=== PATIENT | male | born 1995 | race Hispanic/Latino ===

== ENCOUNTER 2018-05-04 16:15 | Emergency (ER) | payer MEDICARE ==
[2018-05-04 17:07] LABS: BASOPHILS % (AUTO) 0.4 % (0.0-5.0); EOSINOPHILS % (AUTO) 0.1 % (0.0-8.0); HEMATOCRIT 33.8 % (42-54); LYMPHOCYTES % (AUTO) 0.8 % (21.0-51.0); MEAN CORPUSCULAR HEMOGLOBIN 32.1 pg (27.0-33.0); MEAN CORPUSCULAR HGB CONC 32.5 g/dL (32.0-36.0); MEAN CORPUSCULAR VOLUME 98.6 fL (79-99); MONOCYTES % (AUTO) 0.1 % (3.0-13.0); NEUTROPHILS % (AUTO) 98.6 % (40.0-77.0); PLATELET COUNT (AUTO) 107 K/uL (130-400); RED BLOOD CELL COUNT(AUTO) 3.43 MIL/uL (4.50-6.20); RED CELL DISTRIBUTION WIDTH 19.5 % (11.0-15.5); WHITE BLOOD COUNT (AUTO) 5.3 K/uL (4.8-10.8)
[2018-05-04 17:29] LABS: CREATININE 10.8 mg/dL (0.5-1.5); POTASSIUM 6.6 mmol/L (3.5-5.1)
[2018-05-04 17:38] LABS: ALBUMIN 2.9 g/dL (3.5-5.0); BILIRUBIN,DIRECT 1.7 mg/dL (0.0-0.3); BILIRUBIN,TOTAL 1.9 mg/dL (0.2-1.0)
[2018-05-04 18:12] LABS: BAND NEUTROPHILS % (MANUAL) 18 % (0-2); MAN.DIFF COMMENT-IMPRESSION MANUAL DIFFERENTIAL; METAMYELOCYTES % 3 % (0-0); MONOCYTES % (MANUAL) 4 % (2-9); SEGMENTED NEUTROPHILS % 75 % (40-70)
[2018-05-04 18:13] LABS: PLATELET MORPHOLOGY COMMENT SLIGHTLY DECREASED
[2018-05-05 00:22] LABS: ALBUMIN 2.4 g/dL (3.5-5.0); BILIRUBIN,TOTAL 1.5 mg/dL (0.2-1.0); CREATININE 7.7 mg/dL (0.5-1.5); TOTAL PROTEIN, SERUM 5.1 g/dL (6.0-8.3)
== END 2018-05-05 03:16 | disposition short-term general hospital (02) ==
LOC: EDH 16:15
DX: N17.9 Acute kidney failure, unspecified (principal); E87.5 Hyperkalemia; Z99.2 Dependence on renal dialysis; Z94.0 Kidney transplant status
CPT/HCPCS: 36415; 80048; 80053; 80076; 85025; 90935; 93005; G0257

== ENCOUNTER 2018-08-17 18:57 | Emergency (ER) | payer MEDICARE ==
[2018-08-17 20:11] LABS: MEAN CORPUSCULAR HEMOGLOBIN 31.5 pg (27.0-33.0); MEAN CORPUSCULAR HGB CONC 33.3 g/dL (32.0-36.0); MEAN CORPUSCULAR VOLUME 94.5 fL (79-99); PLATELET COUNT (AUTO) 454 K/uL (130-400); RED BLOOD CELL COUNT(AUTO) 1.91 MIL/uL (4.50-6.20); RED CELL DISTRIBUTION WIDTH 19.2 % (11.0-15.5); WHITE BLOOD COUNT (AUTO) 10.1 K/uL (4.8-10.8)
[2018-08-17 20:16] LABS: HEMATOCRIT 18.1 % (42-54)
[2018-08-17 20:41] LABS: EOSINOPHILS % (MANUAL) 3 % (1-6); LYMPHOCYTES % (MANUAL) 6 % (22-44); MAN.DIFF COMMENT-IMPRESSION MANUAL DIFFERENTIAL; MONOCYTES % (MANUAL) 9 % (2-9); SEGMENTED NEUTROPHILS % 82 % (40-70)
[2018-08-17 20:43] LABS: PLATELET MORPHOLOGY COMMENT INCREASED
== END 2018-08-17 21:07 | disposition home or self-care (01) ==
LOC: EDH 18:57
DX: D64.9 Anemia, unspecified (principal); N18.6 End stage renal disease; Z99.2 Dependence on renal dialysis; Z94.0 Kidney transplant status; Z98.890 Other specified postprocedural states
CPT/HCPCS: 36415; 85025

== ENCOUNTER 2021-01-08 06:14 | Inpatient (IN) | payer MEDICARE ==
[~2021-01-08] VITALS: Ht 157.5 cm; Wt 60.9 kg
[2021-01-08] VITALS (15 sets, daily range): BP systolic 98–169; BP diastolic 74–99
[~2021-01-08 06:14] MED LIST: METO25TA6 PO; SEVE800T7 PO
[2021-01-08 07:24] LABS: BASOPHILS % (AUTO) 0.6 % (0.0-5.0); EOSINOPHILS % (AUTO) 0.4 % (0.0-8.0); HEMATOCRIT 32.8 % (42-54); LYMPHOCYTES % (AUTO) 20.9 % (21.0-51.0); MEAN CORPUSCULAR HEMOGLOBIN 30.2 pg (27.0-33.0); MEAN CORPUSCULAR HGB CONC 31.7 g/dL (32.0-36.0); MEAN CORPUSCULAR VOLUME 95.3 fL (79-99); MONOCYTES % (AUTO) 4.1 % (3.0-13.0); NEUTROPHILS % (AUTO) 73.6 % (40.0-77.0); PLATELET COUNT (AUTO) 152 K/uL (130-400); RED BLOOD CELL COUNT(AUTO) 3.44 MIL/uL (4.50-6.20); RED CELL DISTRIBUTION WIDTH 14.8 % (11.0-15.5); WHITE BLOOD COUNT (AUTO) 5.1 K/uL (4.8-10.8)
[2021-01-08 07:35] LABS: AMMONIA 7 umol/L (11-32)
[2021-01-08 07:49] LABS: ALANINE AMINOTRANSFERASE 13 U/L (12-78); ALBUMIN 3.7 g/dL (3.5-5.0); ASPARTATE AMINOTRANSFERASE 25 U/L (10-37); BILIRUBIN,TOTAL 0.6 mg/dL (0.2-1.0); CARBON DIOXIDE 25 mmol/L (21-32); CHLORIDE 101 mmol/L (101-111); CREATINE KINASE, TOTAL 76 U/L (21-232); GLOMERULAR FILTR. RATE CALC 9 mL/min (>60); GLUCOSE,RANDOM 118 mg/dL (70-105); LIPASE 165 U/L (114-286); SODIUM SERUM 142 mmol/L (136-145); TOTAL PROTEIN, SERUM 7.6 g/dL (6.0-8.3); UREA NITROGEN, BLOOD 72 mg/dL (7-18)
[2021-01-08 07:59] LABS: MAGNESIUM 2.3 mg/dL (1.80-2.40); PHOSPHORUS 10.6 mg/dL (2.5-4.9)
[2021-01-08 08:10] LABS: CREATININE 8.1 mg/dL (0.5-1.5)
[2021-01-08 08:16] LABS: ALCOHOL, BLOOD < 3 mg/dL (0-10); POTASSIUM 6.8 mmol/L (3.5-5.1)
[2021-01-08] MEDS ORDERED: SODIUM BICARB 50MEQ 50ML VIAL 50 ML ONE (08:26)
[2021-01-08] MEDS ORDERED: INSULIN HUMULIN R 100 UNIT/ML 3ML IV ONE (08:30)
[2021-01-08] MEDS ORDERED: SODIUM BICARB 8.4% 50ML SYRINGE IVP ONE (08:30)
[2021-01-08] MEDS ORDERED: DEXTROSE 50%-WATER 25 GM/50 ML VIAL IV ONE (08:30)
[2021-01-08] MEDS ORDERED: ALBUTEROL 0.083% 2.5 MG/3 ML INH IH ONE (08:38)
[2021-01-08] MEDS ORDERED: 0.9%NACL 50ML 50 ML IV ONE (08:50)
[2021-01-08] MEDS ORDERED: CALCIUM GLUC 1GM/10ML VIAL ONE (08:50)
[2021-01-08] MEDS: CALCIUM GLUC 1GM 1 GM in 0.9%NACL 100ML 100 ML IV SCH (09:16)
[2021-01-08] MEDS: DEXTROSE 50%-WATER 50 ML DISP.SYRIN IV SCH (09:30)
[2021-01-08] MEDS ORDERED: ALBUTEROL 0.083% 2.5 MG/3 ML INH IH SCH (12:00)
[2021-01-08] MEDS ORDERED: HEPARIN 5,000 UNIT VIAL SQ PRN (15:00)
[2021-01-08] MEDS ORDERED: 0.9%NACL 1000ML 1,000 ML IV PRN (15:00)
[2021-01-08] MEDS ORDERED: METO-408 PO ×2 (18:10→18:14)
[2021-01-08] MEDS ORDERED: AMLO2.5T4 PO (18:10)
[2021-01-08] MEDS ORDERED: BENZ200C53 PO (18:10)
[2021-01-08] MEDS ORDERED: ONDA4TAB10 PO (18:10)
[2021-01-08] MEDS ORDERED: ONDANSETRON ODT 4MG TAB PO PRN (18:30)
[2021-01-08] MEDS ORDERED: BENZONATATE 100 MG CAPSULE PO PRN (18:30)
[2021-01-08] MEDS ORDERED: METOPROLOL SUCCINATE 50 MG TAB.SR.24H PO ONE (18:46)
[2021-01-08] MEDS: AMLODIPINE 2.5 MG TAB PO SCH (18:49)
[2021-01-08] MEDS ORDERED: METOPROLOL TARTRATE 25 MG TAB PO SCH (21:00)
[2021-01-09] VITALS (21 sets, daily range): BP systolic 132–190; BP diastolic 81–147
[2021-01-09 05:18] LABS: BASOPHILS % (AUTO) 1.2 % (0.0-5.0); EOSINOPHILS % (AUTO) 1.9 % (0.0-8.0); HEMATOCRIT 29.7 % (42-54); LYMPHOCYTES % (AUTO) 15.5 % (21.0-51.0); MEAN CORPUSCULAR HEMOGLOBIN 30.6 pg (27.0-33.0); MEAN CORPUSCULAR HGB CONC 31.3 g/dL (32.0-36.0); MEAN CORPUSCULAR VOLUME 97.7 fL (79-99); MONOCYTES % (AUTO) 9.5 % (3.0-13.0); NEUTROPHILS % (AUTO) 71.5 % (40.0-77.0); PLATELET COUNT (AUTO) 114 K/uL (130-400); RED BLOOD CELL COUNT(AUTO) 3.04 MIL/uL (4.50-6.20); RED CELL DISTRIBUTION WIDTH 14.7 % (11.0-15.5); WHITE BLOOD COUNT (AUTO) 5.2 K/uL (4.8-10.8)
[2021-01-09 05:42] LABS: HEMOGLOBIN A1C 4.8 % (4.0-6.0)
[2021-01-09 05:55] LABS: MAGNESIUM 1.8 mg/dL (1.80-2.40); POTASSIUM 5.6 mmol/L (3.5-5.1)
[2021-01-09 06:01] LABS: CREATININE 10.5 mg/dL (0.5-1.5)
[2021-01-09] MEDS: CALCIUM GLUC 1GM 1 GM in 0.9%NACL 100ML 100 ML IV SCH (08:30)
[2021-01-09] MEDS: DEXTROSE 50%-WATER 50 ML DISP.SYRIN IV SCH (08:30)
[2021-01-09] MEDS ORDERED: AMLODIPINE 2.5 MG TAB PO SCH (09:00)
[2021-01-09] MEDS: METOPROLOL SUCCINATE 50 MG TAB.SR.24H PO SCH (09:07)
[2021-01-09] MEDS: SEVELAMER HCL 800 MG TABLET PO SCH ×3 (09:07→17:00)
[2021-01-09] MEDS: HEPARIN 5,000 UNIT VIAL SQ SCH ×2 (09:09→19:12)
[2021-01-09] MEDS: AMLODIPINE 2.5 MG TAB PO SCH (09:22)
[2021-01-09] MEDS ORDERED: CLONIDINE HCL 0.2 MG TABLET PO ONE (19:23)
[2021-01-09] MEDS ORDERED: CLONIDINE HCL 0.1 MG TABLET PO PRN (19:30)
[2021-01-09] MEDS ORDERED: CLONIDINE HCL 0.2 MG TABLET PO STA (19:43)
[2021-01-10 04:00] VITALS: BP 142/96
[2021-01-10 05:12] LABS: HEMATOCRIT 32.9 % (42-54); MEAN CORPUSCULAR HEMOGLOBIN 29.9 pg (27.0-33.0); MEAN CORPUSCULAR HGB CONC 30.4 g/dL (32.0-36.0); MEAN CORPUSCULAR VOLUME 98.5 fL (79-99); PLATELET COUNT (AUTO) 116 K/uL (130-400); RED BLOOD CELL COUNT(AUTO) 3.34 MIL/uL (4.50-6.20); RED CELL DISTRIBUTION WIDTH 14.5 % (11.0-15.5); WHITE BLOOD COUNT (AUTO) 4.3 K/uL (4.8-10.8)
[2021-01-10 05:36] LABS: POTASSIUM 5.7 mmol/L (3.5-5.1)
[2021-01-10 05:40] LABS: CREATININE 8.8 mg/dL (0.5-1.5)
[2021-01-10 08:00] VITALS: BP 143/100
[2021-01-10] MEDS: DEXTROSE 50%-WATER 50 ML DISP.SYRIN IV SCH (08:30)
[2021-01-10] MEDS: CALCIUM GLUC 1GM 1 GM in 0.9%NACL 100ML 100 ML IV SCH (08:30)
[2021-01-10] MEDS: AMLODIPINE 2.5 MG TAB PO SCH (09:01)
[2021-01-10] MEDS: METOPROLOL SUCCINATE 50 MG TAB.SR.24H PO SCH (09:02)
[2021-01-10] MEDS: SEVELAMER HCL 800 MG TABLET PO SCH ×2 (09:02→11:45)
[2021-01-10] MEDS: HEPARIN 5,000 UNIT VIAL SQ SCH (09:04)
[2021-01-10 11:58] VITALS: BP 146/103
[2021-01-10 12:08] LABS: HEPATITIS Bs ANTIGEN SCREEN P Negative (Negative)
== END 2021-01-10 13:30 | disposition left against medical advice (07) | DRG 70 ==
LOC: EDH 06:14 → EDHIP 08:30 → 3DH 01-09 01:14
PROVIDERS: ADMIT Internal Medicine Infectious Disease; ATTEND Internal Medicine Infectious Disease
PROC: 5A1D70Z Performance of Urinary Filtration, Intermittent, Less than 6 Hours Per Day (ICD-10-PCS; principal; 2021-01-08)
PROC: 5A1D70Z Performance of Urinary Filtration, Intermittent, Less than 6 Hours Per Day (ICD-10-PCS; 2021-01-09)
DX: G93.41 Metabolic encephalopathy (principal); N18.6 End stage renal disease; I12.0 Hypertensive chronic kidney disease with stage 5 chronic kidney disease or end stage renal disease; J81.1 Chronic pulmonary edema; E87.1 Hypo-osmolality and hyponatremia; E87.5 Hyperkalemia; Z99.2 Dependence on renal dialysis; Z91.19 Patient's noncompliance with other medical treatment and regimen
CPT/HCPCS: 36415; 70450; 71045; 80048; 80053; 82140; 82550; 82948; 83036; 83605; 83690; 83735; 84100; 84132; 84484; 85025; 85027; 86704; 86706; 87040; 87340; 90935; 93005; 94645; 99291; G0378; J0610; J1644; J1815; J3490; J7070